=== PATIENT | male | born 1945 | race Caucasian/White ===

== ENCOUNTER → 2020-03-19 10:49 | Outpatient (CLI) | payer MEDICARE, SELFPAY ==
--- NOTE | 2020-03-19 | DI.RAD.S_ITS ---
PROCEDURE: XR HIP W PEL IF DONE LT MIN 4V INDICATIONS: Rt Knee Pain/RT Hip Pain/Low Back Pain TECHNIQUE: AP pelvis with lateral view(s) of the bilateral hip(s). COMPARISON: None. FINDINGS: Bones: No fractures or dislocations, but there is a mild degree of hip joint space narrowing consistent with mild osteoarthritis symmetric bilaterally. Pelvic ring appears intact. No suspicious bony lesions. Soft tissues: The visualized bowel gas pattern is normal. No suspicious soft tissue calcifications. IMPRESSION: Mild bilateral hip joint osteoarthritis no trauma found. Dictated by: Gabriele Snowden M.D. on 03/19/2020 at 12:08 Approved by: Gabriele Snowden M.D. on 03/19/2020 at 12:09
--- NOTE | 2020-03-19 | DI.RAD.S_ITS ---
PROCEDURE: XR LUMBAR SPINE MIN 4V INDICATIONS: Rt Knee Pain/RT Hip Pain/Low Back Pain TECHNIQUE: 5 views of the lumbar spine were acquired. COMPARISON: [facility] [place] , MR, LUMBAR SPINE W/O CONTRAST, 09/14/2011, 12:30. FINDINGS: Bones: 5 mnonrib-bearing vertebrae are present. There is relatively significant levoscoliosis, measuring 28.4? centered at L2-L3 abnormal alignment. There are several vertebral body compression fractures. No suspicious bony lesions are found that would indicate presence of infection or neoplasm. There is mild to moderate vertebral height reduction at T11 and T12, and also mild height reduction at L1 and the superior endplate impaction at L2. Degenerative disc disease was previously significant over the LS-spine MR imaging from September of 2011 and this appears to have worsened. Soft tissues: Overlying bowel gas pattern is normal. No suspicious soft tissue calcifications. Oblique images: No pars defects. IMPRESSION: Several compression fractures are present but chronicity is uncertain. A single comparison study through the LS-spine is a MR examination from 2010. Prominent convex leftward scoliosis, worsening degenerative disc disease. The degree degeneration certainly would predispose to both spinal and foraminal stenosis. Dictated by: Gabriele Snowden M.D. on 03/19/2020 at 12:10 Approved by: Gabriele Snowden M.D. on 03/19/2020 at 12:16
--- NOTE | 2020-03-19 | DI.RAD.S_ITS ---
PROCEDURE: XR KNEE RT 3V INDICATIONS: AAA SCREEN/Rt Knee Pain/RT Hip Pain/Low Back Pain TECHNIQUE: 3 views of the knee were acquired. COMPARISON: None. FINDINGS: Bones: No fractures or dislocations. No suspicious bony lesions. Moderate knee joint space narrowing is present at the medial and lateral compartments and to a similar degree at the lateral facet of the patellofemoral joint. Soft tissues: No joint effusion. No suspicious soft tissue calcifications. IMPRESSION: No trauma, moderate knee joint osteoarthritis as noted. Dictated by: Gabriele Snowden M.D. on 03/19/2020 at 12:09 Approved by: Gabriele Snowden M.D. on 03/19/2020 at 12:10
--- NOTE | 2020-03-19 | DI.US.S_ITS ---
PROCEDURE: US ABD AORTA ANEURYSM SCREEN INDICATIONS: AAA SCREENING TECHNIQUE: Real time scanning was performed of the aorta and iliac arteries, with image documentation. COMPARISON: [facility], , ABDOMEN LIMITED, 01/08/2012, 9:30. FINDINGS: Aorta: Proximal aortic diameter measures 2.9 cm. Mid-aorta measures 2 cm. Distal aortic diameter is 1.9 cm. Iliac arteries: Right common iliac artery measures 1.4 cm. Left common iliac artery measures 1.2 cm. IMPRESSION: Negative for aneurysm. Dictated by: Wellington London M.D. on 03/19/2020 at 10:34 Approved by: Wellington London M.D. on 03/19/2020 at 10:35
== END ==
PROVIDERS: PCP Family Medicine; Referring Provider Family Medicine; Visit Provider Family Medicine
DX: Z13.6 Encounter for screening for cardiovascular disorders (principal); M54.5 Low back pain; M25.561 Pain in right knee; M25.551 Pain in right hip; M16.0 Bilateral primary osteoarthritis of hip; M17.11 Unilateral primary osteoarthritis, right knee; M48.50XA Collapsed vertebra, not elsewhere classified, site unspecified, initial encounter for fracture; M51.37 Other intervertebral disc degeneration, lumbosacral region; M41.86 Other forms of scoliosis, lumbar region; G89.29 Other chronic pain
CPT/HCPCS: 72110; 73521; 73522; 73562; 76706

== ENCOUNTER → 2021-09-02 08:11 | Outpatient (CLI) | payer MEDICARE, SELFPAY ==
[2021-09-02 19:59] LABS: COVID19 - ORCAS (NP or Nasal) Negative (Negative)
== END ==
PROVIDERS: PCP Family Medicine; Visit Provider Family Medicine
DX: Z20.822 Contact with and (suspected) exposure to COVID-19 (principal)
CPT/HCPCS: C9803; U0003

== ENCOUNTER 2021-09-05 09:00 | Day surgery (SDC) | payer MEDICARE, SELFPAY ==
[2021-09-01 08:37] VITALS: BMI 24.4
[2021-09-05] VITALS (9 sets, daily range): BP systolic 116–144; BP diastolic 50–77; PULSE 46–78; RESP 10–16; TEMP 36.3–37; O2SAT 94–100; BMI 24.4
--- NOTE | 2021-09-05 09:35 | PM.PREOP ---
Pre-operative Note COVID-19 COVID-19 status: Negative Result date/Date tested (Pos, Neg/Pending): 09/02/21 Interval Note History & Physical reviewed/Exam performed by Physician: Yes Changes to H&P: No ASA Class (for procedural sedation): II
[2021-09-05] MEDS: LACTATED RINGERS 1,000 ML 42 ML IV ×2 (09:55→10:58)
[2021-09-05] MEDS: FAMOTIDINE 20 MG/2 ML VIAL IV (09:55)
[2021-09-05] MEDS: CEFAZOLIN 1 GM VIAL 2 GM IV (10:15)
--- NOTE | 2021-09-05 10:22 | SUR.OPER ---
Supine on padded OR bed, head on pillow, arms secured on padded arm boards at <90 degrees abduction, legs uncrossed, safety belt at thigh, tape over blanket over lower legs. Gel pad under bilateral heels.
[2021-09-05] MEDS: BUPIVACAINE 0.5% (PF) 30 ML, EPINEPHrine 0.15 MG INJ (10:29)
[2021-09-05] MEDS: LIDOCAINE 1% 30 ML INJ (10:30)
--- NOTE | 2021-09-05 11:32 | P.OP_ITS ---
Operative Date/Time/Diagnoses Date of procedure: 09/05/21 Time of procedure: 11:32 Pre-op diagnosis: Right inguinal hernia Post-op diagnosis: same Procedure & Clinicians Procedure: Open right inguinal hernia repair with mesh Same procedure as scheduled: Yes Indications: Right inguinal hernia Surgeon: Jhon Barreto Click Yes if Unassisted: Yes Anesthesia Type: General Operative Notes Findings: Indirect right inguinal hernia Specimen(s): none sent Estimated Blood Loss (mL): 5 Procedure in detail: First, 2 g of Ancef were administered. The patient was brought to the operating room and placed on the table in supine position general LMA anesthesia was induced. The right groin was prepped and draped in the normal fashion and a time-out was performed. Roughly 10 mL of local anesthetic were injected into the skin and subcutaneous adipose tissue over the groin. A 6 cm incision was made over the right inguinal canal. Dissection was carried down through the subcutaneous adipose tissue. A bridging vein was cauterized. We exposed the external oblique aponeurosis in the direction of the fibers. Additional local was injected deep to the aponeurosis. A 15 blade scalpel was used to luz the external oblique aponeurosis. Metzenbaum scissors were used to carefully open the aponeurosis in the direction of the fibers taking care not to injure the underlying ilioinguinal nerve which was well seen and protected. We completely exposed the inguinal canal. The cord and hernia were dissected free from the inguinal ligament and floor of the inguinal canal and the external oblique aponeurosis was dissected off of the internal oblique taking care not to injure the hypogastric nerve. We encircled the cord with a [place] drain for retraction. We then dissected the indirect sac off the cord structures and allowed it to retract into the abdomen. We also removed a bulky cord lipoma from the cord. We then fashioned a piece of medium weight Bard polypropylene mesh to fit the inguinal canal floor. The mesh was secured with multiple interrupted 3-0 Prolene sutures to the pubic tubercle and shelving edge of the inguinal ligament as well as to the conjoint tendon medially. We cut a slit in the mesh and overlapped the tails to recreate an internal ring and secured the medial tail to the inguinal ligament with additional sutures. We injected some more local into the fatty tissue in the inguinal canal and cord. Finally, we removed the Douglas drain and closed the external oblique fascia with a running 3-0 Vicryl suture. Skin was closed with interrupted 3-0 Vicryl dermal sutures and a running 4 Monocryl subcuticular stitch. EBL 5 mL The patient was awakened and brought to recovery room.
--- NOTE | 2021-09-05 11:56 | SUR.PHASEI ---
1137 hrs: Pt arrives in PACU with OPA in place. Report received, all questions answered.
--- NOTE | 2021-09-05 14:48 | SUR.PHASEII ---
Late entry: Pt assisted to BR, steady when up, refused need for pain meds, voided w/o difficulty, ready to go, dressing remained c/d/i. Left when ready left in stable condition.
== END 2021-09-05 13:10 | disposition home or self-care (01) ==
PROVIDERS: PCP Family Medicine; Referring Provider Surgery; Visit Provider Surgery
PROC: (CPT 49505; principal; 2021-09-05 10:00)
DX: K40.90 Unilateral inguinal hernia, without obstruction or gangrene, not specified as recurrent (principal); K21.9 Gastro-esophageal reflux disease without esophagitis
CPT/HCPCS: 49505; C1781; J0171; J0690; J2250; J3010

== ENCOUNTER → 2021-09-13 11:05 | Outpatient (CLI) | payer MEDICARE, SELFPAY ==
--- NOTE | 2021-09-13 | DI.MRI.S_ITS ---
PROCEDURE: MR LUMBAR SPINE WO CON INDICATIONS: Spinal stenosis, lumbar region with neurogenic cla TECHNIQUE: Noncontrast sagittal T1 spin echo and T2 fast echo, sagittal STIR, axial T1 and T2 fast spin echo through the lumbar spine. In cases with scoliosis, additional coronal T2 fast spin echo may be performed. COMPARISON: [facility] , MR, LUMBAR SPINE W/O CONTRAST, 09/14/2011, 12:30. [facility], CR, XR LUMBAR SPINE MIN 4V, 03/19/2020, 11:03. [facility] [place], CR, XR LUMBAR SPINE WITH OLBIQUES PLUS FLEXION EXTENSION, 08/23/2021, 10:52. FINDINGS: Image quality: This examination is limited by involuntary motion artifact. Alignment and Curvature: There is moderate levoconvex lumbar scoliosis. There is minimal retrolisthesis seen at L1-L2 and L2-L3. Bone Marrow: Marrow is of normal overall signal. No acute vertebral body compression fractures. Incidental note is made of a limbus vertebral body involving the anterior superior portion of the L4 vertebral body. Spinal Cord: Conus medullaris terminates at the L1 level. Visualized cord demonstrates normal signal and size. Paraspinous Soft Tissues: No paravertebral masses. T12-L1: Moderate to severe loss of disc height and disc signal can be seen. Moderate generalized disc bulge is seen. Moderate facet joint hypertrophy is seen. Moderate to severe bilateral neural foraminal narrowing can be seen. There is a degree of compression seen upon the exiting nerve roots. Moderate central canal narrowing is seen. L1-L2: At least moderate loss of disc height and disc signal can be seen. Mild to moderate disc bulge is seen. There is a slight central/right disc protrusion seen. Mild facet joint hypertrophy is seen. There is moderate left-sided and moderate to severe right-sided neural foraminal narrowing seen. There is a mild degree of compression seen upon the exiting right L1 nerve root. L2-L3: Moderate to severe loss of disc height and disc signal can be seen. Reactive marrow endplate changes are seen, which are hyperintense on T1-weighted and T2-weighted imaging and most consistent with fatty metaplasia (Modic type II changes). At least moderate disc bulge is seen, which is eccentric to the right. Moderate facet joint hypertrophy is seen. There is at least moderate left-sided and moderate to severe right-sided neural foraminal narrowing seen. There is a degree of compression seen upon the exiting nerve roots. Moderate central canal narrowing is seen. L3-L4: Pqvk-kp-gnfqzoyu loss of disc height and disc signal can be seen. Moderate disc bulge is seen, which is eccentric to the right. There is a superimposed central disc protrusion. There is a focal annular fissure seen posteriorly. There is moderate right-sided and mild left-sided neural foraminal narrowing seen. There is moderate left-sided and moderate to severe right-sided neural foraminal narrowing seen. There is a degree of compression seen upon the exiting right L3 nerve root. Moderate central canal narrowing is seen. L4-L5: Wqkl-fd-zwjsqyuv loss of disc height and disc signal can be seen. Moderate generalized disc bulge is seen. Mild to moderate facet hypertrophy is seen. There is at least moderate right-sided and moderate left-sided neural foraminal narrowing seen. Moderate central canal narrowing is seen. L5-S1: Moderate to severe loss of disc height and disc signal can be seen. Reactive marrow endplate changes are seen, which demonstrate mixed T1 weighted and T2-weighted signal, and are attributed to a combination of edema and fatty metaplasia (Modic type I and Modic type II changes). Moderate disc bulge is seen, which is eccentric to the left side. Posteriorly projected endplate osteophytes are seen. Bridging endplate osteophytes are seen. Mild facet joint hypertrophy is seen. There is moderate to severe left-sided and at least moderate right-sided neural foraminal narrowing seen. There is a degree of compression seen upon the exiting left L5 nerve root. Moderate central canal narrowing is seen. IMPRESSION: Multiple levels of relatively prominent lumbar spine degenerative change are seen, which are progressed compared to 2011. Moderate levoconvex scoliosis. Dictated by: Wellington London M.D. on 09/13/2021 at 10:58 Approved by: Wellington London M.D. on 09/13/2021 at 11:05
== END ==
PROVIDERS: PCP Family Medicine; Referring Provider Orthopaedic Surgery; Visit Provider Orthopaedic Surgery
DX: M48.062 Spinal stenosis, lumbar region with neurogenic claudication (principal); M51.36 Other intervertebral disc degeneration, lumbar region; M41.86 Other forms of scoliosis, lumbar region
CPT/HCPCS: 72148

== ENCOUNTER 2023-03-27 11:31 | Outpatient (CLI) | payer MEDICARE, SELFPAY ==
[2023-03-27] VITALS (8 sets, daily range): BP systolic 125–174; BP diastolic 64–78; PULSE 52–86; RESP 9–18; TEMP 37; O2SAT 97–100
--- NOTE | 2023-03-27 11:32 | DI.RAD.S_ITS ---
PROCEDURE: PAIN L/S FACET INJ/BLK 1ST ADY COMPARISON: [facility] [place], CR, XR LUMBAR SPINE WITH OLBIQUES PLUS FLEXION EXTENSION, 08/23/2021, 10:52. MR, MR LUMBAR SPINE WO CON, 09/13/2021, 11:13. INDICATIONS: SPONDYLOSIS FINDINGS: 6 intraoperative fluoroscopy images demonstrate needle placement at L4-L5 and L5-S1 facet joints bilaterally. IMPRESSION: Fluoroscopy for pain management. Dictated by: Doron Mahan M.D. on 03/28/2023 at 10:43 Approved by: Doron Mahan M.D. on 03/28/2023 at 10:44
[2023-03-27] MEDS: MIDAZOLAM 2 MG/2 ML VIAL IV (13:10)
[2023-03-27] MEDS: BETAMETHASONE 30 MG/5 ML MDV 12 MG INJ (13:17)
[2023-03-27] MEDS: IOPAMIDOL 15 ML VIAL 3 ML INJ (13:17)
[2023-03-27] MEDS: BUPIVACAINE 0.5% (PF) 10 ML VIAL 5 ML INJ (13:17)
[2023-03-27] MEDS: LIDOCAINE 1% (PF) 5 ML INJ (13:18)
--- NOTE | 2023-03-27 13:28 | P.PCN_ITS ---
Date/Time/Diagnoses Date of procedure: 03/27/23 Time of procedure: 13:29 Pre-procedure diagnosis: 1. FACET ARTHROPATHY 2. AXIAL LBP 3. MULTILEVEL DDD Post-procedure diagnosis: same Procedure Notes Procedure: 1. FLUOROSCOPICALLY GUIDED CONTRAST CONTROLLED FACET JOINT INJECTIONS BILATERAL L4/5, L5/S1 Indications: Toñito is referred by Dr. Jackman for treatment of Axial LBP Physician: Niko Thomas Total Fluoroscopy time (seconds): 14 Total sedation minutes: 15 Complications: none Procedure in detail & Post-procedure care: FINDINGS Multilevel Facet Arthropathy with Clinically significant axial LBP DESCRIPTION OF PROCEDURE Fluoroscopically guided, contrast-controlled bilateral L4/5, L5/S1 facet joint injections. Following review of allergy and review of potential side effects and complications, including, but not necessarily limited to, infection, allergic reaction, local tissue breakdown, stroke, temporary or permanent nerve injury, paralysis, and possible , the patient indicated that the patient understood and agreed to proceed. An informed consent document was signed by the patient, witnessed by a nurse, and placed in the patient's chart. Additionally, other treatment options including medications, modalities, and physical therapy were reviewed with the patient. After review of previous anaesthesic history and IV conscious sedation the patient was deemed safe to proceed with today?s procedure with IV conscious sedation as ASA class II designation. Safety time-out was performed to confirm patient ID, procedure to be performed and site of procedure. IV sedation was accomplished with a combination of 2mg of Versed was administered by the RN after DO order, titrated to patient comfort during the course of the procedure while the patient remained responsive to all verbal commands In the prone position, following sterile prep and drape of the lumbar region, the posterior aspect of the L4/5, L5/S1 facet joints were identified fluoroscopically. The skin was anesthetized via a 25-gauge 1.5inch needle with 1% lidocaine solution into the corresponding facet joints. At this point, a 22- gauge 3.5-inch spinal needle was atraumatically introduced and advanced under fluoroscopic guidance into the corresponding facet joints. Following negative aspiration, injections of approximately 0.2cc of Isovue 200 confirmed interarticular placement without vascular uptake. The identical procedure was then performed at the L4/5, L5/S1 facet joints on the left. Radiological data, including multiple fluoroscopic views of the lumbosacral spine, reveal a spinal needle at the L4/5, L5/S1 facet joints bilaterally. Subsequent views show flow of contrast material both superiorly and inferiorly within the joint space without vascular or intrathecal uptake. At this point, a total of 0.5cc including a mixture of 0.25cc Marcaine and 0.25cc betamethasone was injected without complication into each of the corresponding facet joints. The patient tolerated the procedure well without signs or symptoms of complications prior to transfer to the recovery area continued monitoring without incident. The patient was then transferred to the recovery area where they were observed for an appropriate period of time after the injection. The patient reported a VAS score of 8 prior to the procedure and a post- procedure VAS of 1. POST OP INSTRUCTIONS The patient was provided a Pain Log to continue to record their response to the target-specific procedure prior to follow-up visit with their referring physician. Additionally, specific post-injection care instructions and a contact number to our office were provided if concerns arise regarding possible complications associated with the procedure are suspected.
--- NOTE | 2023-03-27 13:56 | PC.NURSE ---
Patient is steady on his feet. Per Dr Thomas ok for him to wait in the waiting room until closer time to [facility] so he does not have to wait at the terminal. Patient will call Chad kang
== END 2023-03-27 13:57 | disposition home or self-care (01) ==
PROVIDERS: PCP Family Medicine; Referring Provider Physical Medicine & Rehabilitation; Visit Provider Physical Medicine & Rehabilitation
DX: M47.816 Spondylosis without myelopathy or radiculopathy, lumbar region (principal)
CPT/HCPCS: 64493; 64494; 99152; J0702; J2250

== ENCOUNTER 2023-06-14 11:17 | Outpatient (CLI) | payer MEDICARE, SELFPAY ==
--- NOTE | 2023-06-14 11:18 | DI.RAD.S_ITS ---
PROCEDURE: PAIN L INTERLAMINAR/CAUDAL INJ INDICATIONS: SPONDYLOSIS COMPARISON: None. FINDINGS: Fluoroscopic spot filming was performed to verify placement of spinal needles at the L4-L5 interlaminar space level(s), as labeled on the films. Appropriate location(s) of the needle tip(s) was confirmed by injection of iodinated contrast. IMPRESSION: Access needle and L4-L5 interlaminar space for translaminar epidural steroid injection. Dictated by: Kamla Vera MD, PhD on 06/14/2023 at 14:56 Approved by: Kamla Vera MD, PhD on 06/14/2023 at 14:57
[2023-06-14 13:27] VITALS: BP 184/81; PULSE 42; RESP 16; TEMP 36.7; O2SAT 99
[2023-06-14 13:35] VITALS: BP 190/84; PULSE 36
[2023-06-14 14:22] VITALS: BP 204/93; PULSE 70; RESP 13; O2SAT 100
[2023-06-14 14:27] VITALS: BP 183/86; PULSE 60; RESP 9; O2SAT 100
[2023-06-14] MEDS: BETAMETHASONE 30 MG/5 ML MDV 6 MG INJ (14:29)
[2023-06-14] MEDS: BUPIVACAINE 0.25% (PF) VIAL 2 ML INJ (14:30)
[2023-06-14] MEDS: IOPAMIDOL 15 ML VIAL 3 ML INJ (14:30)
[2023-06-14] MEDS: DEXAMETHASONE 10 MG/ML VIAL INJ (14:30)
[2023-06-14 14:32] VITALS: PULSE 71; RESP 10; O2SAT 100
--- NOTE | 2023-06-14 14:37 | P.PCN_ITS ---
Date/Time/Diagnoses Date of procedure: 06/14/23 Time of procedure: 14:37 Pre-procedure diagnosis: 1. HNP WITH RADICULAR FEATURES, 2. MULTILEVEL CENTRAL STENOSIS, Post-procedure diagnosis: same Procedure Notes Procedure: 1. FLUOROSCOPICALLY GUIDED CONTRAST CONTROLLED INTERLAMINAR EPIDURAL STEROID INJECTION -L4/5 Indications: Toñito is referred by Dr. Jackman for treatment of Bilateral Foraminal Stenosis R>L LE symptoms. Physician: Niko Thomas Total Fluoroscopy time (seconds): 10 Total sedation minutes: 0 Complications: none Procedure in detail & Post-procedure care: FINDINGS Multilevel Central Spinal Stenosis with Nerve Root Compression DESCRIPTION OF PROCEDURE Fluoroscopically guided, contrast-controlled L4/5 translaminar epidural steroid injection. Following review of allergy and review of potential side effects and complications, including, but not necessarily limited to, infection, allergic reaction, local tissue breakdown, temporary as well as permanent nerve injury, paralysis, stroke and possible , the patient indicated that the patient understood and agreed to proceed. An informed consent document was signed by the patient, witnessed by a nurse, and placed in the patient's chart. Additionally, other treatment options including modalities, medications, and physical therapy were reviewed with the patient. After review of previous anaesthesic history and IV conscious sedation the patient was deemed safe to proceed with today?s procedure with IV conscious sedation as ASA class II designation. Safety time-out was performed to confirm patient ID, procedure to be performed and site of procedure. IV sedation was deemed unnecessary and thus not administered by the RN after DO order, titrated to patient comfort during the course of the procedure while the patient remained responsive to all verbal commands In the prone position, following sterile prep and drape of the lumbar region, the L4/5 translaminar space was identified fluoroscopically. The skin was anesthetized via a 25-gauge, 1.5inch needle with 1% lidocaine solution. At this point, a 22-gauge short bevel spinal needle was atraumatically introduced and advanced under fluoroscopic guidance into the region of the L4/5 translaminar space. Depth was confirmed on lateral view. Radiological data, including multiple fluoroscopic views of the lumbar spine, reveal a spinal needle at the L4/5 translaminar space. Lateral views then show placement of the needle in the epidural space. Subsequent views show contrast material flowing superiorly and inferiorly in the epidural space. No vascular or intrathecal uptake is observed. At this point, using loss of resistance technique with saline and air, the epidural space was entered. This was confirmed following negative aspiration with injection of approximately 1.5cc of Isovue 200, showing excellent epidural flow without vascular or intrathecal uptake. At this point, 1cc of 1% lidocaine solution combined with 2cc or 20mg of dexamethasone and 6mg betamethasone was injected without incident. The patient tolerated the procedure well without signs or symptoms of complications prior to transfer to the recovery area continued monitoring without incident. The patient was then transferred to the recovery area where they were observed for an appropriate period of time after the injection. The patient reported a VAS score of 6 prior to the procedure and a post- procedure VAS of 0. POST OP INSTRUCTIONS The patient was provided a Pain Log to continue to record their response to the target-specific procedure prior to follow-up visit with their referring physician. Additionally, specific post-injection care instructions and a contact number to our office were provided if concerns arise regarding possible complications associated with the procedure are suspected.
[2023-06-14 14:38] VITALS: BP 174/77; PULSE 35; RESP 16; O2SAT 100
== END 2023-06-14 14:49 | disposition home or self-care (01) ==
LOC: RAD 11:18
PROVIDERS: PCP Family Medicine; Referring Provider Physical Medicine & Rehabilitation; Visit Provider Physical Medicine & Rehabilitation
DX: R00.1 Bradycardia, unspecified; M51.16 Intervertebral disc disorders with radiculopathy, lumbar region; M48.061 Spinal stenosis, lumbar region without neurogenic claudication
CPT/HCPCS: 62323; 93005; 93010; J0702; J1100; J2250; J3490

== ENCOUNTER 2023-10-23 11:53 | Outpatient (CLI) | payer MEDICARE, SELFPAY ==
--- NOTE | 2023-10-23 13:00 | DI.RAD.S_ITS ---
PROCEDURE: PAIN L/S FACET INJ/BLK 1ST ADY INDICATIONS: FACET ARTHROPATHY COMPARISON: [facility], MR, MR LUMBAR SPINE WO CON, 09/13/2021, 11:13. [facility], RF, LUMBAR TRANSFORAMINAL DIEGO, 12/05/2021, 16:49. FINDINGS: Fluoroscopic spot filming was performed to verify placement of spinal needles at the L4, L5 and S1 level(s), as labeled on the films. Appropriate location(s) of the needle tip(s) was confirmed by injection of iodinated contrast. IMPRESSION: Fluoroscopy for pain management. Dictated by: Doron Mahan M.D. on 10/23/2023 at 14:47 Approved by: Doron Mahan M.D. on 10/23/2023 at 14:47
[2023-10-23 13:15] VITALS: BP 204/86; PULSE 61; RESP 20; TEMP 36.3; O2SAT 98
[2023-10-23 13:38] VITALS: BP 176/78; PULSE 73; RESP 10; O2SAT 100
[2023-10-23] MEDS: iopamidoL 15 ML VIAL 3 ML INJ (13:39)
[2023-10-23] MEDS: BUPIVACAINE 0.5% (PF) 10 ML VIAL 5 ML INJ (13:39)
[2023-10-23] MEDS: LIDOCAINE 1% 20 ML 5 ML INJ (13:39)
[2023-10-23 13:43] VITALS: BP 165/76; PULSE 74; RESP 9; O2SAT 100
[2023-10-23 13:48] VITALS: BP 188/85; PULSE 75; RESP 8; O2SAT 100
--- NOTE | 2023-10-23 13:53 | PM.PROC.IR.1 ---
Date/Time/Diagnoses Date of procedure: 10/23/23 Time of procedure: 13:53 Pre-procedure diagnosis: 1. FACET ARTHROPATHY Post-procedure diagnosis: same Procedure Notes Procedure: 1. BILATERAL- L4, L5 and S1 DIAGNOSTIC MB BLOCKS with LA Anesthetic Indications: Toñito is referred by Dr. Jackman for treatment of Bilateral Axial LBP. Physician: Niko Thomas Total Fluoroscopy time (seconds): 11 Total sedation minutes: 0 Complications: none Procedure in detail & Post-procedure care: DESCRIPTION OF PROCEDURE Fluoroscopically guided, contrast-controlled bilateral L4, L5 and S1 medial branch blocks with 0.5cc of 0.5% Marcaine. Following review of allergy and review of potential side effects and complications, including, but not necessarily limited to, infection, allergic reaction, local tissue breakdown, nerve injury, paralysis, stroke and possible , the patient indicated that the patient understood and agreed to proceed. An informed consent document was signed by the patient, witnessed by a nurse, and placed in the patient's chart. After review of previous anaesthesic history and IV conscious sedation the patient was deemed safe to proceed with today's procedure with IV conscious sedation as ASA class II designation. Safety time-out was performed to confirm patient ID, procedure to be performed and site of procedure. IV sedation was deemed unnecessary and thus not administered by the RN after DO order, titrated to patient comfort during the course of the procedure while the patient remained responsive to all verbal commands In the prone position, following sterile prep and drape of the lumbar region, the right L4, L5 and S1 anatomical location of the medial branch of the dorsal ramus was identified fluoroscopically. Subsequently an anesthetic skin wheal using 1% lidocaine solution was initiated at each of the anatomical spots. Subsequently then a 22-gauge 3.5-inch spinal needle was atraumatically introduced and advanced under fluoroscopic guidance at each of the corresponding sites at the right L4, L5 and S1 MB. After negative aspiration, 0.2cc of Isovue 200 was injected, confirming placement without vascular or intrathecal uptake. Subsequently then 0.5cc of 0.5% Marcaine solution was injected at each of the corresponding sites at the right L4, L5 and S1 medial branch locations. The identical procedure was replicated on the left. The patient tolerated the procedure well without signs or symptoms of complications prior to transfer to the recovery area continued monitoring without incident. Post-procedure, the patient was monitored initiating provocative activities to measure the amount of relief from block of the facetogenic pain. The patient reported a VAS of 8 prior to the procedure and a post-procedure VAS of 1. It has been a pleasure to assist in the diagnostic and therapeutic care of your patient. POST OP INSTRUCTIONS The patient was provided with a Pain Log to complete over the next several hours and subsequent days prior to the patient's follow up with the ordering physician. If the patient has chief clerk shelter relief to the solution applied, then they may be a candidate for medial branch rhizotomy. The patient is aware, was provided, once again, with a Pain Log and will follow up with the referring physician for review and clinical correlation
[2023-10-23 13:55] VITALS: BP 145/77; PULSE 55; RESP 20; O2SAT 99
[2023-10-23 14:00] VITALS: BP 152/76; PULSE 60; RESP 20; O2SAT 99
== END 2023-10-23 14:06 | disposition home or self-care (01) ==
PROVIDERS: PCP Family Medicine; Referring Provider Physical Medicine & Rehabilitation; Visit Provider Physical Medicine & Rehabilitation
DX: M47.816 Spondylosis without myelopathy or radiculopathy, lumbar region (principal); M47.817 Spondylosis without myelopathy or radiculopathy, lumbosacral region
CPT/HCPCS: 64493; 64494

== ENCOUNTER 2024-04-01 11:09 | Outpatient (CLI) | payer MEDICARE, SELFPAY ==
[2024-04-01 13:09] VITALS: BP 180/80; PULSE 58; RESP 16; TEMP 36.8; O2SAT 99
[2024-04-01 13:26] VITALS: BP 201/88; PULSE 61; O2SAT 100
--- NOTE | 2024-04-01 13:27 | PC.NURSE ---
Patient's initial BP in the procedure room was 201/88. Patient is not on any meds for his BP. Patient was asked why he doesn't take any meds for his BP. Patient stated that he usually doesn't have a problem with his BP. Patient was also asked if he checks his BP at home. HE stated that he does.
--- NOTE | 2024-04-01 13:30 | DI.RAD.S_ITS ---
PROCEDURE: PAIN L/S FACET INJ/BLK 1ST ADY INDICATIONS: Bilateral L4-L5 and S1 medial branch blocks SA COMPARISON: [facility], , PAIN L/S FACET INJ/BLK 1ST ADY, 10/23/2023, 14:38. FINDINGS: Fluoroscopic spot filming was performed to verify placement of spinal needles at the bilateral L4, L5, and S1 levels, as labeled on the films. Appropriate locations of the needle tips were confirmed by injection of iodinated contrast. IMPRESSION: Intraprocedural examination demonstrates appropriate needle positioning. Approved by: Russel Angulo M.D. on 04/01/2024 at 22:24
[2024-04-01 13:31] VITALS: BP 181/68; PULSE 70; RESP 10; O2SAT 100
[2024-04-01] MEDS: iopamidoL 15 ML VIAL 3 ML INJ (13:31)
[2024-04-01] MEDS: LIDOCAINE 1% 20 ML 5 ML INJ (13:31)
[2024-04-01] MEDS: LIDOCAINE 2% INJ SDV 5ML 10 ML INJ (13:32)
[2024-04-01 13:36] VITALS: BP 183/82; PULSE 67; RESP 11; O2SAT 100
--- NOTE | 2024-04-01 13:40 | P.PCN_ITS ---
Date/Time/Diagnoses Date of procedure: 04/01/24 Time of procedure: 13:40 Pre-procedure diagnosis: 1. FACET ARTHROPATHY Post-procedure diagnosis: same Procedure Notes Procedure: 1. BILATERAL- L4, L5 and S1 DIAGNOSTIC MB BLOCKS with SA Anesthetic Indications: Toñito is referred by Dr. Jackman for treatment of Bilateral Axial LBP. Physician: Niko Thomas Total Fluoroscopy time (seconds): 11 Total sedation minutes: 0 Complications: none Procedure in detail & Post-procedure care: DESCRIPTION OF PROCEDURE Fluoroscopically guided, contrast-controlled bilateral L4, L5 and S1 medial branch blocks with 0.5cc of 2% Lidocaine. Following review of allergy and review of potential side effects and complications, including, but not necessarily limited to, infection, allergic reaction, local tissue breakdown, nerve injury, paralysis, stroke and possible , the patient indicated that the patient understood and agreed to proceed. An informed consent document was signed by the patient, witnessed by a nurse, and placed in the patient's chart. After review of previous anaesthesic history and IV conscious sedation the patient was deemed safe to proceed with today's procedure with IV conscious sedation as ASA class II designation. Safety time-out was performed to confirm patient ID, procedure to be performed and site of procedure. IV sedation was deemed unnecessary and thus not administered by the RN after DO order, titrated to patient comfort during the course of the procedure while the patient remained responsive to all verbal commands In the prone position, following sterile prep and drape of the lumbar region, the right L4, L5 and S1 anatomical location of the medial branch of the dorsal ramus was identified fluoroscopically. Subsequently an anesthetic skin wheal using 1% lidocaine solution was initiated at each of the anatomical spots. Subsequently then a 22-gauge 3.5-inch spinal needle was atraumatically introduced and advanced under fluoroscopic guidance at each of the corresponding sites at the right L4, L5 and S1 MB. After negative aspiration, 0.2cc of Isovue 200 was injected, confirming placement without vascular or intrathecal uptake. Subsequently then 0.5cc of 2% Lidocaine solution was injected at each of the corresponding sites at the right L4, L5 and S1 medial branch locations. The identical procedure was replicated on the left. The patient tolerated the procedure well without signs or symptoms of complications prior to transfer to the recovery area continued monitoring without incident. Post-procedure, the patient was monitored initiating provocative activities to measure the amount of relief from block of the facetogenic pain. The patient reported a VAS of 7 prior to the procedure and a post-procedure VAS of 1. It has been a pleasure to assist in the diagnostic and therapeutic care of your patient. POST OP INSTRUCTIONS The patient was provided with a Pain Log to complete over the next several hours and subsequent days prior to the patient's follow up with the ordering physician. If the patient has asian studies program chair relief to the solution applied, then they may be a candidate for medial branch rhizotomy. The patient is aware, was provided, once again, with a Pain Log and will follow up with the referring physician for review and clinical correlation
[2024-04-01 13:42] VITALS: BP 184/98; PULSE 73; RESP 16; O2SAT 100
== END 2024-04-01 13:54 | disposition home or self-care (01) ==
LOC: RAD 11:10
PROVIDERS: PCP Family Medicine; Referring Provider Physical Medicine & Rehabilitation; Visit Provider Physical Medicine & Rehabilitation
DX: M47.816 Spondylosis without myelopathy or radiculopathy, lumbar region (principal); M47.817 Spondylosis without myelopathy or radiculopathy, lumbosacral region
CPT/HCPCS: 64493; 64494

== ENCOUNTER → 2024-05-07 10:37 | Outpatient (CLI) | payer MEDICARE, SELFPAY ==
--- NOTE | 2024-05-07 10:38 | DI.RAD.S_ITS ---
PROCEDURE: XR LUMBAR SPINE MIN 4V INDICATIONS: BACK PAIN TECHNIQUE: 5 views of the lumbar spine were acquired, including bilateral oblique views. COMPARISON: [facility], CR, XR LUMBAR SPINE MIN 4V, 03/19/2020, 11:03. FINDINGS: Bones: 5 nonrib-bearing vertebrae are present. There is normal bony alignment. No vertebral body compression fractures. No suspicious bony lesions. S shaped scoliosis remains unchanged. Generalized decreased osseous mineralization noted.. Left inguinal surgical clips noted. Diffuse disc space narrowing hypertrophic arthropathy remains unchanged Soft tissues: Overlying bowel gas pattern is normal. No suspicious soft tissue calcifications. Oblique images: No pars defects. IMPRESSION: Advanced degenerative disc disease and arthropathy associated with S shaped thoracolumbar scoliosis, similar to the prior exam Approved by: Marcello Parekh M.D. on 05/07/2024 at 10:34
== END ==
PROVIDERS: PCP Family Medicine; Referring Provider Physical Medicine & Rehabilitation; Visit Provider Physical Medicine & Rehabilitation
DX: M48.062 Spinal stenosis, lumbar region with neurogenic claudication (principal); M41.86 Other forms of scoliosis, lumbar region; M47.816 Spondylosis without myelopathy or radiculopathy, lumbar region; M51.36 Other intervertebral disc degeneration, lumbar region; R00.1 Bradycardia, unspecified
CPT/HCPCS: 72110; 99214

== ENCOUNTER 2024-06-10 11:31 | Outpatient (CLI) | payer MEDICARE, SELFPAY ==
[2024-06-10 11:40] VITALS: BP 189/86; PULSE 54; RESP 18; TEMP 36.5; O2SAT 99
[2024-06-10 11:50] VITALS: BP 169/111; PULSE 37; RESP 16; O2SAT 99
[2024-06-10 11:55] VITALS: BP 170/79; PULSE 46; RESP 13; O2SAT 98
[2024-06-10 12:00] VITALS: BP 170/79; PULSE 38; RESP 16; O2SAT 99
--- NOTE | 2024-06-10 12:07 | PC.NURSE ---
Patient arrived into pre/post room. Heart rate noted to be 36-70's. Patient hooked up to monitor. Denies any chest pain, SOB, h/a and heart palpations. No hx of afib but does have a history of bradycardia. see Vitals. Verbal order for 12lead EKG.
--- NOTE | 2024-06-10 12:17 | EKG_ITS ---
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
--- NOTE | 2024-06-10 12:58 | PC.NURSE ---
Late entry: Procedure cancelled today by Dr. Thomas after 12 lead EKG performed by RT. Patient denies any cardiac symptoms at this time. Patient verbalized understanding of risks with HR in the 30s. Patient verbalized understanding of signs and symptoms of cardiac distress and when to seek medical care. Patient verbalized that he will follow-up with his primary provider and cardiology. IV removed. Patient discharged home.
== END 2024-06-10 12:30 | disposition home or self-care (01) ==
PROVIDERS: PCP Family Medicine; Referring Provider Physical Medicine & Rehabilitation; Visit Provider Physical Medicine & Rehabilitation
DX: R00.1 Bradycardia, unspecified (principal)
CPT/HCPCS: 93005; 93010

== ENCOUNTER 2024-09-23 07:27 | Outpatient (CLI) | payer MEDICARE, SELFPAY ==
[2024-09-23] VITALS (14 sets, daily range): BP systolic 120–164; BP diastolic 64–79; PULSE 49–66; RESP 12–18; TEMP 36.5; O2SAT 98–100
--- NOTE | 2024-09-23 07:28 | DI.RAD.S_ITS ---
PROCEDURE: PAIN L/S MED/LAT N RFA BILAT INDICATIONS: Bilateral L4-5 and S1 medial branch RFA COMPARISON: None. FINDINGS: Fluoroscopic spot filming was performed to verify placement of spinal needles at the L4-5 and S1 level(s), as labeled on the films. Appropriate location(s) of the needle tip(s) was confirmed by injection of iodinated contrast. IMPRESSION: Fluoroscopic guidance for a right RFA branch block. Dictated by: Steven Wilson M.D. on 09/23/2024 at 10:42 Approved by: Steven Wilson M.D. on 09/23/2024 at 10:42
[2024-09-23] MEDS: MIDAZOLAM 2 MG/2 ML VIAL 1 MG IV ×2 (08:16→08:42)
[2024-09-23] MEDS: BUPIVACAINE 0.5% (PF) 10 ML VIAL 5 ML INJ (08:24)
[2024-09-23] MEDS: LIDOCAINE 1% 20 ML 5 ML INJ (08:27)
--- NOTE | 2024-09-23 09:05 | P.PCN_ITS ---
Date/Time/Diagnoses Date of procedure: 09/23/24 Time of procedure: 09:05 Pre-procedure diagnosis: 1. RECALCITRANT FACET ARTHROPATHY Post-procedure diagnosis: same Procedure Notes Procedure: 1. BILATERAL L4 AND L5 MEDIAL BRANCH RADIOFREQUENCY NEUROTOMY AND S1 DORSAL RAMUS BRANCH RADIOFREQUENCY NEUROTOMY Indications: Toñito is referred by Dr. Jackman for treatment of facet arthropathy. Physician: Niko Thomas Total Fluoroscopy time (seconds): 17 Total sedation minutes: 39 Complications: none Procedure in detail & Post-procedure care: DESCRIPTION OF PROCEDURE Bilateral L4 and L5 medial branch radiofrequency neurotomy and bilateral S1 dorsal ramus radiofrequency neurotomy under fluoroscopy with conscious sedation. The patient is well known to this clinic having undergone previous facet injections with good but temporary relief. The patient has experienced appropriate, concordant relief with previous facet and median branch blocks but the patient's pain has been recalcitrant to further conservative measures. Therefore, based upon the patient's relief and persistent symptoms, the patient is considered an appropriate candidate for facet rhizotomy. All of the patient's questions regarding the risks versus benefits of the procedure, including, but not limited to, bleeding, infection, temporary as well as lasting nerve injury, paralysis, stroke, and , as well treatment alternatives were answered to satisfaction. After obtaining informed consent, denial of pertinent drug allergies, as well as being made aware of the potential risks of bleeding, infection, spinal cord trauma, paralysis, temporary and permanent nerve damage, seizure, stroke, and possible , the patient was brought to the fluoroscopy suite and positioned prone on the fluoroscopy table. The lumbar region was prepped in usual sterile fashion and covered with a fenestrated drape in the usual sterile fashion. Appropriate monitors applied including pulse oximeter, pulse, and blood pressure for regular monitoring throughout the procedure. After review of previous anaesthesic history and IV conscious sedation the patient was deemed safe to proceed with today's procedure with IV conscious sedation as ASA class II designation. Safety time-out was performed to confirm patient ID, procedure to be performed and site of procedure. IV sedation was accomplished with a combination of 2mg of Versed administered by the RN after DO order, titrated to patient comfort during the course of the procedure while the patient remained responsive to all verbal commands. After local infiltration using 1% lidocaine, under fluoroscopic guidance, a 10- cm RF insulated needle with a 10-mm active tip was positioned parallel to the junction of the right sacral ala and the superior articulating process where the S1 dorsal ramus resides. Needle placement was confirmed with motor stimulation of .5v on the right which produced local stimulation without radicular component. The stimulation was then increased to 2v with, once again, only local multifidus stimulation without radicular component. The needle was then removed and the identical procedure was performed along the length of the right L5 medial branch with motor stimulation at .7v on the right. The identical procedure was once again performed along the length of the right L4 medial branch with motor stimulation of .5v on the right. The medial branches were then anesthetised with 0.5% Marcaine. This was then followed by two discreet lesions performed at 80 degrees Celsius for 90 seconds each. The identical procedure was repeated on the left. The patient tolerated the procedure well without signs or symptoms of complications prior to transfer to the recovery area continued monitoring without incident. The patient was then transferred to the recovery area where they were observed for an appropriate period of time after the injection. The patient reported a VAS score of 7 prior to the procedure and a post-procedure VAS of 2. POST OP INSTRUCTIONS The patient was provided a Pain Log to continue to record the patient's response to the target-specific procedure prior to the patient's follow-up visit with the referring physician. Additionally, specific post-injection care instructions and a contact number to our office were provided if concerns arise regarding possible complications associated with the procedure are suspected.
== END 2024-09-23 09:25 | disposition home or self-care (01) ==
PROVIDERS: PCP Family Medicine; Referring Provider Physical Medicine & Rehabilitation; Visit Provider Physical Medicine & Rehabilitation
DX: M47.816 Spondylosis without myelopathy or radiculopathy, lumbar region (principal); M47.817 Spondylosis without myelopathy or radiculopathy, lumbosacral region
CPT/HCPCS: 64635; 64636; 99152; 99153; J2250